=== PATIENT | female | born 1980 | race African-American/Black ===

== ENCOUNTER 2021-01-02 13:00 | Emergency (ER) | payer OTHER, SELFPAY ==
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
[2021-01-02 13:08] VITALS: BP 138/74; PULSE 90; RESP 18; TEMP 36.2; O2SAT 100
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
[2021-01-02] MEDS: IBUPROFEN 600 MG TABLET PO (15:02)
== END 2021-01-02 17:01 | disposition home or self-care (01) ==
PROVIDERS: Emergency Provider Emergency Medicine
DX: S33.5XXA Sprain of ligaments of lumbar spine, initial encounter (principal); V43.62XA Car passenger injured in collision with other type car in traffic accident, initial encounter
CPT/HCPCS: 72100; 99283; A9270